=== PATIENT | male | born 1970 | race Two or more races ===

== ENCOUNTER 2018-09-15 10:44 | Emergency (ER) | payer MEDICAID, OTHER ==
--- NOTE | 2018-09-15 11:07 | EDPHY ---
H & P Time Seen by Provider: 09/15/18 10:53 HPI/ROS: CHIEF COMPLAINT: Cough HISTORY OF PRESENT ILLNESS: Patient is a 48-year-old male who presents to the emergency department with ongoing cough. The patient states his cough started approximately 2 weeks ago. It primarily occurs at night. He has been taking Mucinex with no real relief. He states that the cough is productive of sputum. He feels better during the day. He has had no fevers or chills. No leg pain or swelling. No chest pain. Patient does states that he has slightly tender left anterior lymph node. The patient has history of aortic valve replacement. He is not on blood thinner. The patient recently had a physical for the [facility]. He was told he had high blood pressure in the start of blood pressure medication. Patient's son was also a physician. He stated that his blood pressure would likely very did not feel he should be on the blood pressure medication as it may contribute to his cough. He is not currently taking blood pressure medication. REVIEW OF SYSTEMS: 10 systems were reveiwed and are negative with the exception of the elements mentioned in the history of present illness. Past Medical/Surgical History: Includes high blood pressure, aortic valve replacement Social history: Patient does not smoke. Occasionally drinks alcohol. He is . Smoking Status: Former smoker Physical Exam: Vitals noted. Hypertensive. GENERAL: Well-appearing, in no acute distress, alert. HEENT: Eyes normal to inspection, normal pharynx, no signs of dehydration. NECK: Normal, supple. Patient has mildly enlarged bilateral anterior lymphadenopathy. The left anterior notice slightly tender to touch. No surrounding redness or warmth. RESPIRATORY: Clear to auscultation bilaterally, no rales, rhonchi or wheezing. CVS: Regular rate and rhythm, no rubs, murmur present. ABDOMEN: Soft, nontender, nondistended, no organomegaly. BACK: Normal to inspection, no CVA tenderness. SKIN: Normal color, no rash, warm, dry. No pallor. EXTREMITIES: No pedal edema, no calf tenderness, no Homans sign or cords, no joint swelling. NEURO/PSYCH: Alert and oriented, normal mood and affect, normal motor sensory exam. No obvious cranial nerve deficit. Constitutional: Initial Vital Signs Temperature (C) 36.6 C 09/15/18 10:53 Heart Rate 90 09/15/18 10:53 Respiratory Rate 18 09/15/18 10:53 Blood Pressure 195/100 H 09/15/18 10:53 O2 Sat (%) 98 09/15/18 10:53 O2 Delivery Mode Room Air Allergies/Adverse Reactions: No Known Allergies Allergy (Unverified 07/01/09 15:46) Home Medications: Medication Instructions Recorded Blood Preassure Med 09/15/18 Flonase Nasal [place] 09/15/18 Medical Decision Making ED Course/Re-evaluation: In the emergency department I discussed possible etiologies with the patient. I answered all his questions. EKG and chest x-ray were ordered. EKG shows normal sinus rhythm, normal rate, normal axis, normal intervals. Possible LVH. There are no ST or T-wave abnormalities. Chest x-ray: No focal infiltrate. I discussed results with the patient. I answered all his questions. Patient was noted to be hypertensive while here. I recommended he follow up with primary care physician. Patient's son-in-law is Dr. Cuevas. I also given follow-up with on-call physician. I discussed the importance of having his blood pressure managed. I discussed possible etiologies with the patient. He he will sit up in bed to try to avoid reflux. He will take Pepcid or Prilosec 1 hr prior to bedtime to see if this alleviates his symptoms. I hear no wheezing or other abnormality on exam. I do not feel he needs an inhaler or steroid. Patient has no focal infiltrate on his x-ray. He appears well. He has no cough during the day. I do not feel he needs antibiotics. Differential Diagnosis: My differential includes but is not limited to pneumonia, bronchitis, postnasal drip, reflux, ACS, acute CA, hypertension, hypertensive urgency, hypertensive emergency Departure - Departure Disposition: Home, Routine, Self-Care Clinical Impression: Cough Condition: Good Instructions: Chronic Cough (ED) Additional Instructions: Return with increasing cough, shortness of breath, fever or any other concerns. Try to have the head of bead elevated when you sleep at night. Your cough could be secondary to reflux. Take Pepcid or Prilosec prior to going to bed. Avoid eating 1-2 hours prior to bedtime. You need to call your primary care physician to arrange close follow-up. You were noted to be hypertensive (high blood pressure) while here. This will need to be evaluated as an outpatient. Referrals: Cedric Lockhart MD [Medical Doctor] - 5-7 days, call for appt.
[2018-09-15 12:05] VITALS: BP 157/66
--- NOTE | 2018-09-15 14:17 | CPEKG ---
Test Reason : OPEN Blood Pressure : / mmHG Vent. Rate : 077 BPM Atrial Rate : 077 BPM P-R Int : 141 ms QRS Dur : 101 ms QT Int : 401 ms P-R-T Axes : 074 013 092 degrees QTc Int : 454 ms Sinus rhythm Confirmed by Katelynn Martinez ([id number]) on 09/15/2018 2:16:49 PM Referred By: Katelynn Martinez Confirmed By:Katelynn Martinez
== END 2018-09-15 12:02 | disposition home or self-care (01) ==
LOC: CED 10:44
DX: R05 Cough (principal); Z95.2 Presence of prosthetic heart valve; Z87.891 Personal history of nicotine dependence
CPT/HCPCS: 71046-PO; 99284-ER